=== PATIENT | female | born 1970 | race Caucasian/White ===

== ENCOUNTER 2023-11-21 21:49 | Inpatient (IN) | payer OTHER ==
[~2023-11-21] VITALS: Ht 152.4 cm; Wt 68.3 kg
[~2023-11-21 21:49] MED LIST: FLUOXETINE HCL40 MG PO; METOPROLOL SUCC25 MG PO; SUMATRIPTAN SUC50 MG PO
[2023-11-21] MEDS ORDERED: ondansetron HCL 4 MG/2 ML VIAL IV ONE (23:00)
[2023-11-21] MEDS ORDERED: HYDROmorphone HCL 1 MG/ML SYR IV PRN ×2 (23:00→23:45)
[2023-11-21] MEDS ORDERED: CEFAZOLIN SODIUM 2 GM/20 ML SYR IV ONE (23:00)
[2023-11-21] MEDS ORDERED: propofoL 200 MG/20 ML VIAL IV ONE (23:15)
[2023-11-21] MEDS ORDERED: ondansetron HCL 4 MG/2 ML VIAL IV PRN (23:45)
[2023-11-21] MEDS ORDERED: LACTATED RINGER'S 1,000 ML IV SCH (23:45)
[2023-11-22] VITALS (7 sets, daily range): BP systolic 116–150; BP diastolic 72–85
--- NOTE | 2023-11-22 01:14 | NUR ---
PATIENT VERY DROWSY, AROUSABLE. SHE HAS NOT REQUESTED PAIN COVERAGE, SHE REPORTS PAIN IS MUCH MORE TOLERABLE SINCE REDUCTION PROCEDURE IN ED. SHE IS CURRENTLY RESTING IN BED WITH RIGHT LEG ELEVATED ON TWO PILLOWS IN FX BOOT. HER EYES ARE CLOSED RESPIRATIONS 12/MIN. HER OXYGEN SATURATION IS 90-92% ON ROOM AIR.
--- NOTE | 2023-11-22 03:43 | NUR ---
PATIENT ROUNDING, PATIENT ASKED FOR SOMETHING TO WET HER MOUTH AND ALSO TO TRY TO VOID. PATIENT ASSISTED UP TO BEDSIDE COMMODE TWO PERSON, NO WEIGHT BEARING ON RIGHT LOWER EXTREMITY, PATIENT HAS GOOD STRENGTH ON LLE. SHE WAS ABLE TO VOID 200ML YELLOW URINE. PATIENT ADMINISTERED 1MG IV DILAUDID FOR PAIN 11/18, SHE IS PROVIDED GLYCERIN SWABS FOR DRY MOUTH, PATIENT THEN WANTED ASSISTANCE TO CALL HER SPOUSE WITH ROOM PHONE, PROVIDED AND PATIENT SPOKE WITH SPOUSE.
[2023-11-22] MEDS ORDERED: LACTATED RINGER'S 1,000 ML IV SCH (04:15)
[2023-11-22] MEDS ORDERED: IBLOOD GLUCOSE TEST STRIP 1 EA TEST XX PRN (04:15)
[2023-11-22 04:44] LABS: BASOPHILS 0.6 % (0-2); EOSINOPHILS 0.3 % (0-6); HEMATOCRIT 39.1 % (35.0-50.0); HEMOGLOBIN 12.9 g/dL (12.0-18.0); LYMPHOCYTES 17.6 % (24-44); MCHC 32.9 g/dl (30-36); MCV 100.3 fl (81-99); MONOCYTES 7.1 % (0-12); NEUTROPHILS 74.4 % (39-80); PLATELET COUNT 296 K/uL (140-440)
--- NOTE | 2023-11-22 04:57 | NUR ---
CALLED TO REPORT PATIENT PAIN IS 710, REPORTED LAST DOSE ADMINISTERED AND CURRENT ORDERS. NEW ORDERS GIVEN SEE EMAR.
[2023-11-22 04:59] LABS: ALBUMIN 3.3 g/dL (3.4-5.0); BILIRUBIN, TOTAL 0.2 ng/dL (0.2-1.0); BUN/CREATININE RATIO 18.75 (6.0-28.6); CALCIUM 7.4 mg/dL (8.5-10.1); CREATININE, SERUM 0.8 mg/dL (0.55-1.02); PROTEIN, TOTAL 6.6 g/dL (6.4-8.2)
[2023-11-22] MEDS ORDERED: HYDROmorphone HCL 1 MG/ML SYR IV PRN (05:00)
--- NOTE | 2023-11-22 06:12 | NUR ---
HIBA CLEANSE WIPE DOWN COMPLETE. PATIENT REPORTS PAIN 7/10, 1MG IV DILAUDID PRN ADMINISTERED. PATIENTS SPOUSE PRESENT AT BEDSIDE.
[2023-11-22] MEDS ORDERED: SODIUM CHLORIDE 0.9% 40 ML IV ONE (06:30)
[2023-11-22] MEDS ORDERED: LIDOCAINE HCL 2% 5 ML SDV ONE ×2 (06:30→08:09)
[2023-11-22] MEDS ORDERED: DEXAMETHASONE SOD PHOS 4 MG/ML VIAL ONE (06:30)
[2023-11-22] MEDS ORDERED: KETOROLAC TROMETHAMINE 30 MG/ML VIAL ONE (06:30)
[2023-11-22] MEDS ORDERED: dexmedeTOMIDine HCl 200 MCG/2 ML VIAL ONE (06:30)
[2023-11-22] MEDS ORDERED: ondansetron HCL 4 MG/2 ML VIAL ONE (06:30)
[2023-11-22] MEDS ORDERED: propofoL 200 MG/20 ML VIAL ONE ×2 (06:30→08:09)
[2023-11-22] MEDS ORDERED: Ropivacaine HCl 0.5% 30 ML VIAL ONE (06:30)
[2023-11-22] MEDS ORDERED: ACETAMINOPHEN 1,000 MG/100 ML VIAL ONE (06:31)
[2023-11-22] MEDS ORDERED: CEFAZOLIN SODIUM 2 GM/20 ML SYR IV SCH (07:00)
[2023-11-22] MEDS ORDERED: TRANEXAMIC ACID 2,000 MG in SODIUM CHLORIDE 0.9% 100 ML IV SCH (07:00)
[2023-11-22] MEDS ORDERED: fentaNYL citrate 50 MCG/ML SDV IV PRN (07:15)
[2023-11-22] MEDS ORDERED: ondansetron HCL 4 MG/2 ML VIAL IV PRN (07:15)
[2023-11-22] MEDS ORDERED: IBLOOD GLUCOSE TEST STRIP 1 EA TEST VI PRN (07:15)
[2023-11-22] MEDS ORDERED: NALOXONE HCL 0.4 MG SYR IV PRN (07:15)
[2023-11-22] MEDS ORDERED: MIDAZOLAM HCL 2 MG/2 ML VIAL ONE (07:21)
--- NOTE | 2023-11-22 07:58 | NUR ---
Pt report received at 0659 hours from MANUEL Peralta. Pt is up to BSC, assisted by Wenyd Jefferson. Pt is A&O x4, reports that, with her affected extremity beind dependent while on the BSC, her pain is a 10 out of 10 "and it feels like there loose stuff in there". MANUEL Lorenzo in room to transfer pt to day surgery. Pt transferred via bed to day surgery at about 0710 hours. White board updated. Pt's is in room.
[2023-11-22] MEDS ORDERED: HYDROCODON-ACE1 EA11 PO (08:34)
[2023-11-22] MEDS ORDERED: DICLOFENAC SODI75 MG PO (08:35)
--- NOTE | 2023-11-22 08:42 | NUR ---
11/22/[address] LE 0831: PT ARRIVES TO PACU VIA BED. SHE IS NON-REACTIVE TO ANY STIMULI AT THIS TIME. LE 0835: PT CONTINUES WITH NO RESPONSE TO STIMULI. LE 0840: PT ASLEEP, CMS INTACT. DR. MODI AT BEDSIDE FOR A MOMENT.
[2023-11-22] MEDS ORDERED: OXYCODONE HCL 5 MG TAB PO PRN (08:45)
[2023-11-22] MEDS ORDERED: KETOROLAC TROMETHAMINE 15 MG/ML VIAL IV PRN (08:45)
[2023-11-22] MEDS ORDERED: SENNOSIDES 1 TAB PO SCH (09:00)
[2023-11-22] MEDS ORDERED: ASPIRIN 325 MG TAB PO SCH (09:00)
--- NOTE | 2023-11-22 09:21 | NUR ---
Pt arrived to room from PACU, transferred via bed by MANUEL Lorenzo. Pt report received from MANUEL Lorenzo (0902 hours). Pt is drowsy but oriented, awakens easily to voice. Family in room. CPOX applied, VS obtained, IV site is patent, flushes well, good return. Foot pump on and running (left foot), ice to boot. LCTA, HRRR, respirations regular, even, and non-labored. Call light in reach, oriented family to room and call light.
--- NOTE | 2023-11-22 11:44 | NUR ---
PHYSICAL THERAPIST IN WITH PT AT THIS TIME.
--- NOTE | 2023-11-22 11:45 | NUR ---
Communicated with Yuliya Cruz and Dr. Loving via text message. Julienne gave a verbal order for Physical Therapy if the pt is feeling up to it. She states the pt is non weight bearing on the right leg, either use a walker or crutches, whichever she is more comfortable with. She is to follow up with Dr. Loving' office in one week and needs to call on Friday to schedule. When asked, she stated that Dr. Loving' usually sends prescriptions in electronically and to check the computer for the script, and states that as long as basic parameters have been met, she can be discharged. Messaged them regarding the physica therapist's findings after she worked with the pt (if she goes home today, the PT said she needs to use a walker to get around and crutches to get up the two stairs in to her home. The pt can't feel her right leg yet and can't move it forward to advance without the PT physically helping her). Julienne advised that the pt should be safe to go home and to advise the pt that the nerve block should last for another 12 or more hours, but before she goes to bed tomorrow night, she will definitely want to take some pain medicine to ease the transition. Advised the pt of this information from Julienne and Dr. Loving.
--- NOTE | 2023-11-22 23:15 | EKG ---
[facility] [address] [place] [address] Signed Sinus tachycardia with short DE Possible Left atrial enlargement Rightward axis Borderline ECG No previous ECGs available Confirmed by Natalia Riojas MD () on 11/22/2023 11:15:43 PM Electronically Signed By: NATALIA RIOJAS MD 11/22/23 2315 PATIENT NAME: DANIELA SANTOS Electrocardiogram DATE OF : 68 PHYSICIAN: NATALIA RIOJAS MD REPORT #: [id number] REPORT IS CONFIDENTIAL AND NOT TO BE RELEASED WITHOUT AUTHORIZATION
[2023-11-23] MEDS ORDERED: LIDOCAINE HCL 1% 5 ML SDV SUB-Q ONE (07:00)
--- NOTE | 2023-11-24 08:26 | OR ---
[facility] [address] [place], [place] [address] Signed DATE OF OPERATION: 11/22/2023 SURGEON: Odin Loving MD PREOPERATIVE DIAGNOSIS: Fracture dislocation, right ankle. POSTOPERATIVE DIAGNOSIS: Fracture dislocation, right ankle. PROCEDURE PERFORMED: Open reduction and internal fixation, right lateral malleolus. [employer]: Julienne Akers PA-C. Julienne was present and critical for all portions of procedure. ANESTHESIA: General. BLOOD LOSS: None. TOURNIQUET TIME: 30 minutes. IMPLANTS: Seven hole 1/3rd tubular plate with 8 screws. BRIEF HISTORY: Daniela is a 53-year-old female, who suffered a trip and fall last night with a fracture dislocation of her ankle. She was transported to the emergency department where it was partially reduced. Her ankle was grossly unstable. She was admitted under my service for surgery this morning. Risks, benefits, and alternatives were discussed with her and her . They elected to proceed. DESCRIPTION OF OPERATION: Once consent was obtained, she was taken to the operating room. After adequate anesthesia, she was placed on the operating room table on a hip bump with a well-padded proximal thigh tourniquet. The leg was prepped and draped in a standard sterile fashion Electronically Signed By: ODIN LOVING MD 11/24/23 0826 PATIENT NAME: DANIELA SANTOS OPERATIVE REPORT DATE OF : 68 REPORT #: [id number] PHYSICIAN: ODIN LOVING MD PCP: KRISTA DONIS REPORT IS CONFIDENTIAL AND NOT TO BE RELEASED WITHOUT AUTHORIZATION [facility] [address], [place] [address] Signed with care taken to keep the ankle reduced. The leg was exsanguinated using Esmarch bandage. Tourniquet inflated to 250 mmHg. The lateral malleolus was approached through standard lateral directed approach carried through the skin and subcutaneous tissue. The periosteum was incised longitudinally and elevated anteriorly and posteriorly. The fracture was distracted and the debris was cleaned. Fracture was then reduced and crossclamped. A 3.5 screw was then placed from anterior to posterior in standard AO lag technique. The clamp was removed. The seven hole 1/3 tubular plate was then fit to the lateral side of the malleolus. This was then held with the central screw. The reduction and plate placement were checked using image intensifier and found to be good. Five screws were placed in the proximal using 3.5 standard screws, two locking screws were placed distally. Excellent purchase in the bone was obtained. Final radiographs showed anatomic reduction, good plate placement and screw lengths. The wound was copiously irrigated with normal saline. The periosteum was closed using 2-0 Monocryl, subcutaneous tissue with 2-0 Monocryl and the skin with milagros. Wounds were dressed with Allevyn. She did have some abrasions medially that were dressed with Medihoney and Allevyn. She was placed back into a fracture boot, taken to recovery room in satisfactory condition. All sponge, needle, and instrument counts were correct. Odin Loving MD BA/MODL /[id number] Copies: ~ Electronically Signed By: ODIN LOVING MD 11/24/23 0826 PATIENT NAME: DANIELA SANTOS OPERATIVE REPORT DATE OF : 68 REPORT #: [id number] PHYSICIAN: ODIN LOVING MD PCP: KRISTA DONIS REPORT IS CONFIDENTIAL AND NOT TO BE RELEASED WITHOUT AUTHORIZATION
[2023-11-25] MEDS ORDERED: DICLOFENAC SOD 75 MG TABEC PO SCH (09:00)
== END 2023-11-22 15:30 | disposition home or self-care (01) | DRG 494 ==
LOC: ED 21:49 → MS 23:56
PROVIDERS: ADMIT Specialist; ATTEND Specialist
PROC: 0QSJXZZ Reposition Right Fibula, External Approach (ICD-10-PCS; 2023-11-21)
PROC: 0QSJ04Z Reposition Right Fibula with Internal Fixation Device, Open Approach (ICD-10-PCS; principal; 2023-11-22 07:20)
DX: S82.61XA Displaced fracture of lateral malleolus of right fibula, initial encounter for closed fracture (principal); W01.0XXA Fall on same level from slipping, tripping and stumbling without subsequent striking against object, initial encounter; I10 Essential (primary) hypertension
CPT/HCPCS: 01480; 27840; 36415; 64447; 73600; 73610; 80053; 85025; 93005; 93010; 94762; 97116; 97161; 99284-25; C1713; J0131; J0690; J1100; J1170; J1885; J2001; J2405; J2704; J2795; J7121